=== PATIENT | male | born 1985 | race Caucasian/White ===

== ENCOUNTER 2018-05-02 09:36 | Outpatient (CLI) | END 2018-05-02 09:37 | disposition home or self-care (01) | LOC: RHC-LAB 09:36 → FCC-LAB 09:37 | PROVIDERS: ATTEND Pediatrics Pediatric Cardiology | DX: E11.8 Type 2 diabetes mellitus with unspecified complications (principal) | CPT/HCPCS: 36415; 80053; 80061; 82043; 83037; 85025 ==

== ENCOUNTER 2018-08-28 09:20 | Outpatient (CLI) | END 2018-08-28 09:21 | disposition home or self-care (01) | LOC: RHC-LAB 09:20 → FCC-LAB 09:21 | PROVIDERS: ATTEND Family Medicine | DX: E11.8 Type 2 diabetes mellitus with unspecified complications (principal); R80.9 Proteinuria, unspecified | CPT/HCPCS: 36415; 80053; 83037; 85025 ==